=== PATIENT | female | born 1965 | race Caucasian/White ===

== ENCOUNTER 2016-08-08 05:52 | Observation (INO) | payer OTHER ==
[2016-07-15 12:34] LABS: % IMMATURE GRANULYOCYTES 0.2 % (0.0-1.1); ABSOLUTE IMMATURE GRANULOCYTES 0.01 10^3/uL (0.00-0.10); ADD DIFF? NO; ADD MORPH? NO; ADD SCAN? NO; ATYPICAL LYMPHOCYTE FLAG 20 (0-99); FRAGMENT RBC FLAG 0 (0-99); HEMATOCRIT 40.2 % (38.0-47.0); HEMOGLOBIN 13.8 g/dL (12.6-16.3); LEFT SHIFT FLG 0 (0-99); LIPEMIA HEMOLYSIS FLAG 90 (0-99); MEAN CELL HEMOGLOBIN CONCENTR. 34.3 g/dL (32.4-36.7); MEAN CELL VOLUME 90.3 fL (81.5-99.8); MEAN PLATELET VOLUME 10.7 fL (8.7-11.7); PLATELET CLUMPS FLAG 0 (0-99); PLATELET COUNT 253 10^3/uL (150-400); RED BLOOD CELL COUNT 4.45 10^6/uL (4.18-5.33); RED CELL DISTRIBUTION WIDTH 11.8 % (11.5-15.2)
--- NOTE | 2016-07-28 16:55 | GHP ---
[f rep st] HISTORY AND PHYSICAL DATE OF ADMISSION: 08/08/2016 ADMITTING DIAGNOSIS: 1. Abnormal uterine bleeding. 2. Uterine fibroids. 3. Symptomatic uterine prolapse. HISTORY OF PRESENT ILLNESS: Patient is a 51-year-old 2, para 1-0-1-1, with a long history of abnormal uterine bleeding since 2014. Cycles are heavy with clots and irregular. Patient had an endometrial biopsy that was negative for hyperplasia or malignancy. The patient is currently on control pills and still notes heavy, irregular bleeding. Patient does note uterine prolapse, and has difficulty with insertion of tampons. The patient has a history of anemia, denies any blood transfusions. The patient is interested in definitive treatment at this time and wants to proceed with a hysterectomy. PAST OB HISTORY: Full-term vaginal delivery without any complications and a missed AB x1. HAND POTTER HISTORY: Cycles are heavy, irregular. Patient denies any history of abnormal Pap smears or any exposure to sexually transmitted diseases. PAST MEDICAL HISTORY: Allergic rhinitis, anemia, asthma, vitamin D deficiency. PAST SURGICAL HISTORY: ACL. MEDICATIONS: Iron, fluticasone, Xopenex, QVAR, calcium, vitamin D and zinc oral tablets. ALLERGIES: Sulfa. FAMILY HISTORY: Breast cancer, colon polyps, emphysema, heart disease. SOCIAL HISTORY: Patient is . Lives with her and their child. She denies any alcohol, tobacco, or illicit drug use. LABS: TSH 1.2. H and H 13.7 and 39.9. STUDIES: A pelvic ultrasound showed uterus that is retroverted, measuring 8 x 5 x 6 cm; a bulbous posterior mass is seen, somewhat ill-defined, with increased vascularity representing a fibroid; endometrial thickness is 0.28 cm; bilateral ovaries are normal appearing; no free fluid noted. PHYSICAL EXAMINATION: VITAL SIGNS: Stable. Afebrile GENERAL: The patient is well-nourished, well-developed female. Alert and oriented x3. CARDIOVASCULAR: Regular rate and rhythm. LUNGS: Clear to auscultation bilaterally. ABDOMEN: Soft, nontender, nondistended. Positive bowel sounds. PELVIC EXAM: Retroverted uterus, nontender, no adnexal masses noted. EXTREMITIES: Normal to inspection without calf tenderness or edema. ASSESSMENT AND PLAN: The patient is a 51-year-old 2, para 1-0-1-1, with abnormal uterine bleeding, uterine fibroids, and symptomatic uterine prolapse. PLAN: 1. We discussed the procedure, its limitations, n.p.o. status, and post-op recovery with restrictions. 2. Surgical consents were obtained. Discussed risks, benefits, alternatives including but not limited to, bleeding, infection, and risks of damage to surrounding organs. The patient does understand all risks at this time and wants to proceed with surgery. 3. Antibiotics economic research analyst to OR. 4. DVT prophylaxis with SCDs. /[id number]/MODL MTDD
[2016-08-08] MEDS ORDERED: ceFAZolin 2 GM/DEXTROSE 100 ML IV ONE (06:00)
[2016-08-08] MEDS ORDERED: LIDOCAINE 1% 2 ML INJ ONE (06:06)
[2016-08-08] MEDS ORDERED: BUPIVACAINE 0.5% 30 ML SDV ONE (06:27)
[2016-08-08] MEDS ORDERED: fentaNYL 250 MCG/5 ML INJ ONE (06:52)
[2016-08-08] MEDS ORDERED: PROPOFOL 200 MG/20 ML VIAL ONE (06:52)
[2016-08-08] MEDS ORDERED: MIDAZOLAM 2 MG/2 ML VIAL ONE (07:11)
--- NOTE | 2016-08-08 09:36 | POSTOPPROG ---
Post Op Note Date of Operation: 08/08/16 Surgeon: Marina Witt Form Carpenter: Lashawn Vivas Anesthesiologist: Gvain Goode Anesthesia: GET(General Endotracheal) Pre-op Diagnosis: AUB, uterine fibroids, uterine porlapse Post-op Diagnosis: AUB, uterine fibroids, uterine prolapse, 2nd degree perineal laceration Indication: 51 y/o with AUB on the pill as well as difficulty inserting tampon Procedure: TLH, BS and repair of perineal laceration Findings: Uterus enlarged at 12cm with post fibroid; ovaries and tubes wnl Inf/Abcess present in the surg proc area at time of surgery?: No EBL: 50-100 Total fluids administered: 1 L LR UO: 75 cc clear urine Complications: None Specimen(s): Uterus and b/l tubes
[2016-08-08] MEDS ORDERED: MAGNESIUM HYDROXIDE 30 ML UDCUP PO PRN (09:40)
[2016-08-08] MEDS ORDERED: BISACODYL 10 MG SUPP PR PRN (09:40)
[2016-08-08] MEDS ORDERED: LACTULOSE 20 GM/30 ML UDCUP PO PRN (09:40)
[2016-08-08] MEDS ORDERED: ONDANSETRON DISINTEGRATING 4 MG TAB PO PRN (09:40)
[2016-08-08] MEDS ORDERED: POLYETHYLENE GLYCOL 3350 17 GM PKT PO PRN (09:40)
--- NOTE | 2016-08-08 12:52 | GOP ---
[f rep st] OPERATIVE REPORT DATE OF OPERATION: 08/08/2016 SURGEON: Marina Witt DO SLAB TRIPPER: Lashawn Vivas DO. ANESTHESIA: General endotracheal. PREOPERATIVE DIAGNOSIS: 1. Abnormal uterine bleeding. 2. Uterine fibroids. 3. Uterine prolapse. POSTOPERATIVE DIAGNOSIS: 1. Abnormal uterine bleeding. 2. Uterine fibroids. 3. Uterine prolapse. 4. Second-degree perineal laceration. PROCEDURE PERFORMED: 1. Total laparoscopic hysterectomy. 2. Bilateral salpingo-oophorectomy. 3. Repair of second-degree perineal laceration. FINDINGS: The uterus was enlarged to 12 week size with a posterior fibroid noted. Grossly normal-appearing ovaries and tubes bilaterally. Upper abdomen grossly normal appearing. At the end of the procedure, there was noted to be bleeding from the vagina. Upon inspection, there was a second-degree perineal laceration. SPECIMENS: All specimens sent to pathology: Uterus, bilateral tubes. ESTIMATED BLOOD LOSS: 50 cc. INDICATIONS: Patient is a 51-year-old, 2, para 1-0-1-1, with abnormal uterine bleeding, uterine fibroids on ultrasound, and uterine prolapse with difficulty of insertion of tampons. The patient is currently on the control pill and still has heavy, irregular bleeding. Patient is interested in definitive treatment at this time. DESCRIPTION OF PROCEDURE: Patient was taken to the operating room where general anesthesia was obtained without difficulty. The patient was placed in dorsal lithotomy position, prepped and draped in the usual sterile manner. Sharp catheter was placed in her bladder. Open-sided speculum was then placed in the vagina. Anterior lip of the cervix was grasped with a single-tooth tenaculum. The uterus was then sounded to 12 cm and dilated with Rodrigue dilators. Then using a #10 tip and a medium size cup for the HANNAH, this was advanced into the uterus and then the cup placed firmly on top of the cervix. This was used for a means to manipulate the uterus. We then turned attention to the patient's abdomen. Infraumbilical area was injected with 0.5% plain Marcaine and then a 5 mm infraumbilical skin incision was made with a knife. The Veress needle was inserted very carefully while tenting the abdominal wall. Aspiration was negative. The abdomen was insufflated with carbon dioxide. Pneumoperitoneum was obtained. After adequate insufflation, the Veress needle was removed and the 5 mm trocar was introduced through the infraumbilical incision into the abdominal cavity directly with the laparoscope. The patient was placed in Trendelenburg position. There was adequate visualization of the pelvic structures at this time. After injection of more local, another 5 mm skin incision was made in the left lower quadrant, and a 10 mm skin incision was made in the right lower quadrant. Atraumatic trocars were placed. Pelvic findings were noted as above. The right distal tube was then grasped with a grasper, and the mesosalpinx was then cauterized and ligated with the LigaSure and the tube was then removed intact through the port. Hemostasis noted. The exact procedure was done on the other side and the left tube was removed intact. We then grasped the round ligament. It was coagulated multiple times with the LigaSure and then transected. Hemostasis was noted. Dissection was carried down to the anterior and posterior leaves of the broad ligament and to the bladder flap anteriorly. This was created both sharply and bluntly. Uterine vessels were then cauterized multiple times, and transected with LigaSure until hemostasis was assured. We also incorporated the cardinal ligaments, which cauterized and transected with the LigaSure. Same procedure was done on the opposite side and all pedicles did appear hemostatic. Attention was then turned to the colpotomy. This was done using the LigaSure hook. We started anteriorly and the colpotomy was done circumferentially. Colpotomy was then done and hemostasis of vaginal cuff was noted. The uterus and tubes were then removed through the vagina with some difficulty secondary to its large size. A sponge glove was then placed in the vagina in order to maintain pneumo. We visualized the vaginal cuff and it was noted to be oozing. Using LigaSure, we cauterized the areas noted to be oozing and hemostasis was achieved. Then using a running 0 Vicryl V-Loc suture, the vaginal cuff was closed left to right and hemostasis was assured. The pelvis was then irrigated with copious amounts of normal saline. There was noted to be some oozing on the vaginal cuff so surgical Jerel was placed o6n the vaginal cuff for further hemostasis. The left and right ureters were visualized and peristalsis was seen. There was clean urine noted throughout the whole procedure. Again, all pedicles did appear hemostatic. The laparoscope was then removed. All gas was allowed to escape from the abdomen. Trocar sleeves were then removed as well. The two 5 mm skin incisions were closed with 3-0 Vicryl, and the fascia of the 10 mm incision was closed with 0 Vicryl, and then the skin was closed with 3-0 Vicryl. Each incision was covered with Steri-Strips and then a Band-Aid. We then turned our attention down below. When the sponge glove was removed, there was noted to be bleeding from the vagina. Upon inspection, there was noted to be a second- degree perineal laceration. It was repaired using 3-0 Vicryl. After suturing was done, there was noted to be hemostasis. No complications. Patient tolerated the procedure well. All instrument, sponge and needle counts were correct x2. The patient was then taken out of dorsal lithotomy position, awakened, and taken to the recovery room in stable condition. IV FLUIDS: 1 L of LR. URINE OUTPUT: 75 cc of clear urine at end of procedure. COMPLICATIONS: None. PATHOLOGY: Uterus and bilateral tubes. /[id number]/MODL MTDD
[2016-08-08] MEDS ORDERED: HYDROmorphONE/DILAUDID 2 MG/ML INJ IVP ONE (13:00)
[2016-08-08] MEDS: KETOROLAC 30 MG/1 ML SDV IVP SCH ×2 (15:38→21:05)
--- NOTE | 2016-08-08 16:11 | SOAPPROG ---
SOAP Progress Note Assessment/Plan: Assessment: s/p TLH, BS and repair of perineal laceration POD#0 - doing well Plan: Continue post-op care Continue SCDs and IS Will cont Dilaudid q4 hrs prn since pt has decreased appetite Cont IVFs and encourage po fluids since UO <30 cc/hr and if no improvement will try 250-500 cc IVF bolus Encourage ambulation ad raine 08/08/16 16:07 Subjective: Pt's pain is better controlled with Dilaudid x 1. Pt has decreased appetite and not up to taking oral meds yet-Percocet. Had an orange and a few crackers. Denies any n/v. Now drinking apple juice. She feels dizzy when sitting up in bed. Objective: Vital Signs Temp Pulse Resp BP Pulse Ox 36.4 C 53 L 16 85/54 L 92 08/08/16 14:11 08/08/16 14:11 08/08/16 13:10 08/08/16 14:11 08/08/16 14:11 Laboratory Results 07/15/16 12:08 08/07/16 08/08/16 08/09/16 05:59 05:59 05:59 Intake Total 1150 Output Total 50 Balance 1100 Physical Exam - Physical Exam General Appearance: WD/WN, alert, no apparent distress Respiratory: lungs clear, normal breath sounds Cardiac/Chest: regular rate, rhythm Abdomen: normal bowel sounds, soft, distended, other (appropriate tenderness) Pelvic Exam: deferred Extremities: non-tender, normal inspection Neuro/Psych: alert, normal mood/affect, oriented x 3 ICD10 Worksheet Patient Problems: Problems Problem Status Onset Abnormal uterine bleeding (AUB) Acute Uterine fibroid Acute Uterine prolapse Acute
[2016-08-08] MEDS: ONDANSETRON 4 MG/2 ML VIAL IVP PRN ×2 (16:30→21:12)
[2016-08-08] MEDS: HYDROmorphONE/DILAUDID 1 MG/ML SYR IVP PRN (16:58)
[2016-08-08] MEDS: LR 1,000 ML IV SCH (17:28)
[2016-08-08] MEDS: SENNOSIDES/DOCUSATE SODIUM TAB PO SCH (21:42)
[2016-08-09] MEDS: LR 1,000 ML IV SCH ×2 (00:14→12:34)
[2016-08-09] MEDS: HYDROmorphONE/DILAUDID 1 MG/ML SYR IVP PRN ×2 (00:15→05:52)
[2016-08-09] MEDS: KETOROLAC 30 MG/1 ML SDV IVP SCH ×2 (03:08→09:19)
[2016-08-09 06:22] LABS: HEMATOCRIT 31.1 % (38.0-47.0); HEMOGLOBIN 10.9 g/dL (12.6-16.3)
--- NOTE | 2016-08-09 07:55 | SOAPPROG ---
SOAP Progress Note Assessment/Plan: Assessment: s/p TLH, BS and repair of perineal laceration POD # 1 - doing well Plan: Continue post-op care Will start po Dilaudid since pain so well controlled Increase po fluids To eat breakfast this am and then start po meds Plan for d/c home later today after voiding well, mady reg diet 08/09/16 07:44 Subjective: Pt seen and examined. She is c/o R shoulder pain this am. Pain is well controlled with IV Dilaudid. She has been OOB only a few times, mady regular diet -not eating much though, lim just removed-has not voided yet, passing flatus. Has had some nausea, but no vomiting. Denies any f/c/CP or SOB. Minimal spotting on pad. Objective: Vital Signs Temp Pulse Resp BP Pulse Ox 36.3 C 48 L 14 86/57 L 94 08/09/16 07:14 08/09/16 07:14 08/09/16 07:14 08/09/16 07:14 08/09/16 07:14 Laboratory Results 08/09/16 06:05 08/08/16 08/09/16 08/10/16 05:59 05:59 05:59 Intake Total 4400 Output Total 750 Balance 3650 Physical Exam - Physical Exam General Appearance: WD/WN, alert, no apparent distress Respiratory: lungs clear, normal breath sounds Cardiac/Chest: regular rate, rhythm, edema Abdomen: normal bowel sounds, soft, distended, other (appropriate tenderness; Incisions C/D/I with steri strips, Bandaid) Extremities: non-tender, normal inspection Neuro/Psych: alert, normal mood/affect, oriented x 3 ICD10 Worksheet Patient Problems: Problems Problem Status Onset Abnormal uterine bleeding (AUB) Acute Uterine fibroid Acute Uterine prolapse Acute
[2016-08-09] MEDS ORDERED: KETOROLAC 30 MG/1 ML SDV ONE (09:17)
[2016-08-09] MEDS: OXYCODONE/APAP 5/325 TAB PO PRN ×3 (12:46→21:42)
[2016-08-09] MEDS: SENNOSIDES/DOCUSATE SODIUM TAB PO SCH ×2 (14:20→21:44)
[2016-08-09] MEDS: IBUPROFEN 600 MG TAB PO SCH ×4 (15:48→22:25)
[2016-08-09 16:14] VITALS: RESP 16
[2016-08-09] MEDS: SIMETHICONE 80 MG TAB CHEW PO SCH (22:26)
[2016-08-09] MEDS ORDERED: LORazepam 0.5 MG TAB PO ONE (22:30)
[2016-08-10] MEDS: HYDROmorphONE/DILAUDID 2 MG TAB PO PRN ×2 (02:21→07:56)
[2016-08-10 02:27] VITALS: PULSE 66; O2SAT 96
[2016-08-10] MEDS ORDERED: IBUPROFEN 600 MG TAB PO SCH (06:00)
[2016-08-10] MEDS: SIMETHICONE 80 MG TAB CHEW PO SCH (06:21)
[2016-08-10] MEDS ORDERED: SIMETHICONE 80 MG TAB CHEW PO SCH (07:30)
--- NOTE | 2016-08-10 07:53 | SOAPPROG ---
SOAP Progress Note Assessment/Plan: Assessment: s/p TLH, BS and repair of perineal laceration POD # 2 - stable Plan: OU imprved overnight and pain better controlled with po Dilaudid Plan for d/c home this am Instructions reviewed with pt Rx given for Motrin and Dilaudid Cont stool softener Pelvic rest RTC in 2 weeks for incision check 08/10/16 07:50 Subjective: Pt seen and examined. She is feeling much better today. Pain is better controlled with oral Dilaudid. Still have some R shoulder/clavicle pain. She is OOB, mady regular diet, voiding without difficulty, passing flatus and very small BM x 1. Denies any f/c/n/v/CP or SOB. Minimal spotting noted. Denies any calf pain/tenderness. Objective: Vital Signs Temp Pulse Resp BP Pulse Ox 36.3 C 66 16 95/65 L 96 08/10/16 02:25 08/10/16 02:25 08/09/16 20:23 08/10/16 02:25 08/10/16 02:25 Laboratory Results 08/09/16 06:05 08/09/16 08/10/16 08/11/16 05:59 05:59 05:59 Intake Total 4400 3725 Output Total 750 2340 Balance 3650 1385 Physical Exam - Physical Exam General Appearance: WD/WN, alert, no apparent distress Respiratory: lungs clear, normal breath sounds Cardiac/Chest: regular rate, rhythm Abdomen: normal bowel sounds, soft, distended (mild), other (appropriate tenderness; Incisions x 3 - C/D/I with steri strips) Pelvic Exam: deferred Extremities: non-tender, normal inspection Neuro/Psych: alert, normal mood/affect, oriented x 3 ICD10 Worksheet Patient Problems: Problems Problem Status Onset Abnormal uterine bleeding (AUB) Acute Uterine fibroid Acute Uterine prolapse Acute
[2016-08-10] MEDS: SENNOSIDES/DOCUSATE SODIUM TAB PO SCH (07:56)
[2016-08-10 08:32] VITALS: BP 92/59; TEMP 98.1
[2016-08-10 13:24] LABS: COLOR COLORLESS; LEUKOCYTE ESTERASE,URINE NEGATIVE (NEGATIVE); NITRITE,URINE NEGATIVE (NEGATIVE)
== END 2016-08-10 10:35 | disposition home or self-care (01) ==
LOC: F3E 05:52 → FOB 10:51
PROVIDERS: ADMIT Obstetrics & Gynecology; ATTEND Obstetrics & Gynecology
PROC: 0UT9FZZ Resection of Uterus, Via Natural or Artificial Opening With Percutaneous Endoscopic Assistance (ICD-10-PCS; principal; 2016-08-08 07:15)
PROC: 0UT2FZZ Resection of Bilateral Ovaries, Via Natural or Artificial Opening With Percutaneous Endoscopic Assistance (ICD-10-PCS; principal; 2016-08-08 07:15)
PROC: 0UT7FZZ Resection of Bilateral Fallopian Tubes, Via Natural or Artificial Opening With Percutaneous Endoscopic Assistance (ICD-10-PCS; principal; 2016-08-08 07:15)
PROC: 0KQM0ZZ Repair Perineum Muscle, Open Approach (ICD-10-PCS; principal; 2016-08-08 07:15)
DX: N93.9 Abnormal uterine and vaginal bleeding, unspecified (principal); N81.2 Incomplete uterovaginal prolapse; D25.1 Intramural leiomyoma of uterus; N99.71 Accidental puncture and laceration of a genitourinary system organ or structure during a genitourinary system procedure; D64.9 Anemia, unspecified; J45.909 Unspecified asthma, uncomplicated; E55.9 Vitamin D deficiency, unspecified
CPT/HCPCS: 57210; 58573; G0378; J0690; J1170; J1885; J2250; J2405; J2704; J3010

== ENCOUNTER → 2016-12-14 | Outpatient (CLI) | payer OTHER | LOC: FIMAGING 11:00 | PROVIDERS: ATTEND Physician Assistant | DX: Z12.31 Encounter for screening mammogram for malignant neoplasm of breast (principal) | CPT/HCPCS: G0202 ==

== ENCOUNTER → 2018-01-26 | Outpatient (CLI) | payer BC | LOC: FIMAGING 13:08 | PROVIDERS: ATTEND Physician Assistant | DX: Z12.31 Encounter for screening mammogram for malignant neoplasm of breast (principal) ==